=== PATIENT | male | born 1980 | race Caucasian/White ===

== ENCOUNTER → 2017-05-06 | Day surgery (SDC) | payer OTHER ==
[2017-05-04 16:07] LABS: BASOPHILS % (AUTO) 0.4 % (0.0-2.0); EOSINOPHILS # (AUTO) 0.1 K/uL (0.0-0.4); EOSINOPHILS % (AUTO) 1.1 % (0.0-4.0); HEMATOCRIT 43.5 % (36-54); HEMOGLOBIN 14.6 g/dL (14.0-18.0); LYMPHOCYTES # (AUTO) 1.7 K/uL (1.0-5.5); LYMPHOCYTES % (AUTO) 27.8 % (20.5-51.5); MEAN CORPUSCULAR HEMOGLOBIN 32 pg (27-31); MEAN CORPUSCULAR HGB CONC 34 % (32-36); MEAN CORPUSCULAR VOLUME 95 fL (79.0-98.0); MONOCYTES # (AUTO) 0.5 K/uL (0.0-1.0); MONOCYTES % (AUTO) 8.1 % (1.7-9.3); NEUTROPHILS # (AUTO) 3.7 K/uL (1.8-7.7); NEUTROPHILS % (AUTO) 62.6 % (40.0-70.0); PLATELET COUNT (AUTO) 192 K/uL (130-430); RED BLOOD CELL COUNT(AUTO) 4.57 MIL/uL (4.2-6.2); RED CELL DISTRIBUTION WIDTH 11.9 % (9.0-15.0)
[2017-05-04 16:21] LABS: BILIRUBIN,URINE NEGATIVE (NEGATIVE); BLOOD, URINE NEGATIVE (NEGATIVE); CLARITY/URINE CLEAR (CLEAR); COLOR,URINE YELLOW (YELLOW); GLUCOSE,URINE NEGATIVE (NEGATIVE); KETONES,URINE NEGATIVE (NEGATIVE); LEUKOCYTE ESTERASE ,URINE NEGATIVE (NEGATIVE); NITRITE, URINE NEGATIVE (NEGATIVE); PROTEIN URINE NEGATIVE (NEGATIVE); UROBILINOGEN,URINE 0.2 (0.2-1.0)
[~2017-05-06] VITALS: Ht 182.9 cm; Wt 101.6 kg
[~2017-05-06] MED LIST: ACETAMINOPHEN 325 MG TABLET PO PRN; BUPIVACAINE /EPINEPHRINE/PF 0.5% 30 ML VIAL INJ ONE; CEFAZOLIN 2 GM IVPB PREMIX 50 ML IV ONE; D5LR 1,000 ML IV SCH; DIPHENHYDRAMINE HCL 25 MG CAPSULE PO PRN; HYDROcodone/ACETAMIN 5-325 MG TAB (NORCO/ VICODIN) PO PRN; KETOROLAC TROMETHAMINE 30 MG VIAL IVP ONE; LR 1,000 ML IV SCH; LR 1,000 ML IV.SOLN IV ONE; METOCLOPRAMIDE HCL 10 MG/2 ML VIAL IVP PRN; MIDAZOLAM HCL 5 MG/5 ML VIAL IVP ONE; MIVACURIUM CHLORIDE 20 MG/10 ML VIAL (MIVACRON) INJ ONE; MORPHINE 2 MG/ML INJ. SYRINGE IVP PRN; MORPHINE 4 MG/ML INJ. SYRINGE IVP PRN; MORPHINE SULFATE 10MG/10ML PF AMP EP ONE; PROPOFOL 200MG/ 20ML VIAL (DIPRIVAN) IV ONE; SEVOFLURANE 15 MIN GAS INH ONE; SUCCINYLCHOLINE CHLORIDE 20 MG/ML(QUELICIN) IVP ONE; fentaNYL CITRATE/PF 100 MCG/2 ML AMP IVP ONE
[2017-05-06 12:53] VITALS: BP_SYST 136
== END | disposition home or self-care (01) ==
LOC: SDS 07:15
PROVIDERS: ATTEND Orthopaedic Surgery
DX: M23.232 Derangement of other medial meniscus due to old tear or injury, left knee (principal); M23.262 Derangement of other lateral meniscus due to old tear or injury, left knee
CPT/HCPCS: 29880; 85025; 36415; 81003; J3490; J0690; J1885; J2250; J2704; J0330; J3010; J2274; J7120